=== PATIENT | female | born 1980 | race Caucasian/White ===

== ENCOUNTER 2020-03-24 07:06 | Emergency (ER) | payer MEDICAID ==
[2020-03-24 08:09] LABS: ABSOLUTE LYMPHOCYTES (AUTO) 1.3 10^3/uL (0.5-4.7); ABSOLUTE MONOCYTES (AUTO) 0.3 10^3/uL (0.1-1.4); ABSOLUTE NEUT (AUTO) 7.4 10^3/uL (1.7-8.2); BASOPHILS % (AUTO) 0.4 % (0-2); EOSINOPHILS % (AUTO) 0.2 % (0-6); HEMATOCRIT 44.3 % (36.0-47.0); HEMOGLOBIN 15.2 g/dL (12.0-15.5); LYMPHOCYTES % (AUTO) 14.3 % (13-45); MEAN CORPUSCULAR HEMOGLOBIN 31.2 pg (27.0-33.4); MEAN CORPUSCULAR HGB CONC 34.4 g/dL (32.0-36.0); MEAN CORPUSCULAR VOLUME 91 fl (80-97); MONOCYTES % (AUTO) 3.2 % (3-13); PLATELET COUNT 162 10^3/uL (150-450); RED BLOOD COUNT 4.88 10^6/uL (3.72-5.28); SEGMENTED NEUTROPHILS % (AUTO) 81.9 % (42-78); TOTAL CELLS COUNTED % (AUTO) 100 %
[2020-03-24 08:39] LABS: ALBUMIN 4.5 g/dL (3.5-5.0); ALKALINE PHOSPHATASE 63 U/L (38-126); ANION GAP 9 (5-19); ASPARTATE AMINO TRANSFERASE 52 U/L (14-36); BLOOD UREA NITROGEN 10 mg/dL (7-20); CALCIUM 9.2 mg/dL (8.4-10.2); CARBON DIOXIDE 23 mmol/L (22-30); CHLORIDE 105 mmol/L (98-107); GLUCOSE 103 mg/dL (75-110); POTASSIUM 3.6 mmol/L (3.6-5.0); TOTAL PROTEIN 7.8 g/dL (6.3-8.2)
[2020-03-24 08:41] LABS: ACETAMINOPHEN < 10 ug/mL (10-30); ALCOHOL < 10 mg/dL (NONE DETECTED); SALICYLATE < 1.0 mg/dL (2.0-20.0)
[2020-03-24 08:49] LABS: APPEARANCE,URINE CLEAR; BILIRUBIN,URINE NEGATIVE (NEGATIVE); COLOR,URINE YELLOW; GLUCOSE, URINE NEGATIVE (NEGATIVE); KETONES,URINE TRACE mg/dL (NEGATIVE); LEUKOCYTE ESTERASE,URINE NEGATIVE (NEGATIVE); NITRITE,URINE NEGATIVE (NEGATIVE); PROTEIN,URINE NEGATIVE (NEGATIVE); URINE SPECIFIC GRAVITY 1.008; UROBILINOGEN,URINE NEGATIVE mg/dL (<2.0)
--- NOTE | 2020-03-24 08:51 | ER Document Report ---
ED General - General Chief Complaint: Psych Problem Stated Complaint: SUICIADAL IDEATION Time Seen by Provider: 03/24/20 08:40 Mode of Arrival: Ambulatory Information source: Patient - HPI Notes: Patient presents stating she was having "sad thoughts". She states she has not been having thoughts of suicide and that she has no plans to hurt herself. She states the last time she tried to hurt herself was several months ago after drinking alcohol. She states she has not been drinking any alcohol recently. She states that she is currently living with her in a hotel while they wait for their trailer to be ready. She states she drove herself to the hospital today. She states she is comfortable that she has a safe place to go. She states she is not going to harm herself in any way if she is discharged. Patient states that she used to be on Paxil and that this is been stopped and that she feels she needs to be back on the Paxil. She states she does have an a dvocate that she talks to regularly and was talking to them today. She denies any homicidal ideation. She has had no auditory or visual hallucinations. She states she did recently moved here and does not currently have a therapist but she is working with her advocate to obtain 1. Her sad thoughts have been intermittent. They are made worse by stress and better without it. There is obviously no radiation of the symptoms. They have been moderate in intensity. - Related Data Allergies/Adverse Reactions: carbamazepine [From Tegretol] Allergy (Verified 03/24/20 07:27) phenytoin [From Dilantin] Allergy (Verified 03/24/20 07:27) Past Medical History - General Information source: Patient - Social History Smoking Status: Current Every Day Smoker Chew tobacco use (# tins/day): No Frequency of alcohol use: Occasional Drug Abuse: None Family History: Reviewed & Not Pertinent Patient has homicidal ideation: No Review of Systems - Review of Systems Constitutional: denies: Chills, Fever Cardiovascular: denies: Chest pain, Palpitations Respiratory: denies: Cough, Short of breath -: Yes All other systems reviewed and negative Physical Exam - Vital signs Vitals: Temp Pulse Resp BP Pulse Ox 98.4 F 103 H 16 139/87 H 96 03/24/20 07:22 03/24/20 07:22 03/24/20 07:22 03/24/20 07:22 03/24/20 07:22 Interpretation: Tachycardic - tachy at triage but not on my exam - General General appearance: Appears well, Alert - HEENT Head: Normocephalic, Atraumatic Eyes: Normal Pupils: PERRL - Respiratory Respiratory status: No respiratory distress Chest status: Nontender Breath sounds: Normal Chest palpation: Normal - Cardiovascular Rhythm: Regular Heart sounds: Normal auscultation Murmur: No - Abdominal Inspection: Normal Distension: No distension Bowel sounds: Normal Tenderness: Nontender Organomegaly: No organomegaly - Back Back: Normal, Nontender - Extremities General upper extremity: Normal inspection, Nontender, Normal color, Normal ROM, Normal temperature General lower extremity: Normal inspection, Nontender, Normal color, Normal ROM, Normal temperature, Normal weight bearing. No: Hank's sign - Neurological Neuro grossly intact: Yes Cognition: Normal Orientation: AAOx4 [place] Coma Scale Eye Opening: Spontaneous [place] Coma Scale Verbal: Oriented [place] Coma Scale Motor: Obeys Commands [place] Coma Scale Total: 15 Speech: Normal Motor strength normal: LUE, RUE, LLE, RLE Sensory: Normal - Psychological Associated symptoms: Normal affect, Normal mood - Skin Skin Temperature: Warm Skin Moisture: Dry Skin Color: Normal Course - Re-evaluation Re-evalutation: 03/24/20 09:10 Patient presents with sad thoughts but no suicidal ideation. She states she would just like to have a prescription for Paxil and follow-up as an outpatient. Patient is pleasant and smiling and seems very reasonable. I have no reason to hold patient against her will or to place an IVC. She does not appear suicidal to me and does not appear a threat to herself or other people at this time. She does have a nice safe place to stay. She has an advocate that she is talking already twice on the phone here and that she talks to regularly. I offered to let patient wait until psychiatry arrives in approximately 3 hours however she s tated that she did not want to do this. - Vital Signs Vital signs: Temp Pulse Resp BP Pulse Ox 98.4 F 103 H 16 139/87 H 96 03/24/20 07:22 03/24/20 07:22 03/24/20 07:22 03/24/20 07:22 03/24/20 07:22 - Laboratory Result Diagrams: 03/24/20 07:57 03/24/20 07:57 Laboratory results interpreted by me: 03/24/20 03/24/20 03/24/20 07:57 07:57 07:57 Seg Neutrophils % 81.9 H Sodium 136.8 L AST 52 H ALT 75 H Urine Ketones TRACE H Salicylates < 1.0 L Acetaminophen < 10 L Discharge - Discharge Clinical Impression: Depression Qualifiers: Depression Type: unspecified Qualified Code(s): F32.9 - Major depressive disorder, single episode, unspecified Condition: Stable Disposition: HOME, SELF-CARE Instructions: Depression ([facility]) Additional Instructions: Please follow up with [facility] as soon as you are able. Prescriptions: Paroxetine HCl [Paxil 20 mg Tablet] 20 mg PO DAILY #30 tablet Forms: Return to Work Referrals: [facility] [Provider Group] - Follow up in 1 week
[2020-03-24 09:08] LABS: URINE AMPHETAMINES SCREEN NEGATIVE; URINE BARBITURATES SCREEN NEGATIVE; URINE BENZODIAZEPINES SCREEN NEGATIVE; URINE COCAINE SCREEN NEGATIVE; URINE METHADONE SCREEN NEGATIVE; URINE PHENCYCLIDINE SCREEN NEGATIVE
[2020-03-24 09:12] LABS: URINE MARIJUANA (THC) SCREEN UNCONFIRMED POSITIVE
[2020-03-24 09:43] VITALS: BP 119/76
== END 2020-03-24 09:40 | disposition home or self-care (01) ==
LOC: ER 07:06
DX: F32.9 Major depressive disorder, single episode, unspecified (principal); F17.200 Nicotine dependence, unspecified, uncomplicated; Z88.8 Allergy status to other drugs, medicaments and biological substances
CPT/HCPCS: 36415; 80053; 80307; 81001; 84703; 85025; 99284